=== PATIENT | female | born 1950 ===

== ENCOUNTER 2016-12-08 15:14 | Emergency (ER) | payer OTHER ==
[2016-12-08 15:27] VITALS: O2SAT 100
[2016-12-08] MEDS ORDERED: DiphenhydrAMINE 50 mg/ml Inj IVP STA (16:11)
[2016-12-08] MEDS ORDERED: Sodium Chloride 0.9% 1,000 ML IV ONE (16:39)
[2016-12-08] MEDS ORDERED: DiphenhydrAMINE 50 mg/ml Inj ONE (16:44)
[2016-12-08] MEDS ORDERED: Sodium Chloride 0.9% 1,000 ML ONE (16:44)
[2016-12-08 16:54] LABS: BASO % 0.6 % (0.0-2.0); EOS # 0.1 K/uL (0.0-0.7); EOS % 1.8 % (0.0-4.0); HEMATOCRIT 37.6 % (34.0-47.0); LYMPH # 1.4 K/uL (1.0-4.3); LYMPH % 18.2 % (20.0-40.0); MEAN CELL VOLUME 93.5 fL (81.0-99.0); MEAN CORPUSCULAR HEMOGLOBIN 30.7 pg (27.0-31.0); MEAN CORPUSCULAR HGB CONC 32.9 g/dL (33.0-37.0); MEAN PLATELET VOLUME 9.9 fL (7.2-11.7); MONO # 0.6 K/uL (0.0-0.8); MONO % 7.5 % (0.0-10.0); RED CELL DISTRIBUTION WIDTH 13.9 % (11.5-14.5); WHITE BLOOD COUNT 7.6 K/uL (4.8-10.8)
--- NOTE | 2016-12-08 16:54 | C.PDOC ---
History Of Present Illness 66-year-old female, presents to the emergency department with complaints of generalized weakness, dizziness and numbness in B/L legs over the past few days. Symptoms worsened this morning, resulting in her coming to the ED for evaluation. Patient reports intermittent epigastric abdominal pain, that feels like her gastritis. Denies nausea/vomiting, fevers or chills. Time Seen by Provider: 12/08/16 15:36 Chief Complaint (Nursing): Weakness/Neurological Deficit History Per: Patient, Family History/Exam Limitations: no limitations Onset/Duration Of Symptoms: Days Current Symptoms Are (Timing): Still Present Past Medical History Reviewed: Historical Data, Nursing Documentation, Vital Signs Vital Signs: Last Vital Signs Temp 97.4 F L 12/08/16 18:14 Pulse 64 12/08/16 18:14 Resp 16 12/08/16 18:14 BP 158/89 H 12/08/16 18:14 Pulse Ox 100 12/08/16 18:36 - Medical History PMH: HTN Family History: States: No Known Family Hx - Social History Hx Tobacco Use: No Hx Alcohol Use: No Hx Substance Use: No - Immunization History Hx Tetanus Toxoid Vaccination: No Hx Influenza Vaccination: No Hx Pneumococcal Vaccination: No Review Of Systems Except As Marked, All Systems Reviewed And Found Negative. Constitutional: Positive for: Weakness. Negative for: Fever, Chills Cardiovascular: Negative for: Chest Pain, Palpitations Respiratory: Negative for: Shortness of Breath Gastrointestinal: Positive for: Abdominal Pain (epigastric). Negative for: Nausea, Vomiting Neurological: Positive for: Numbness (legs) Physical Exam - Physical Exam Appears: Non-toxic, No Acute Distress Skin: Warm, Dry, No Rash Head: Atraumatic, Normacephalic Eye(s): bilateral: Normal Inspection, PERRL Nose: Normal Oral Mucosa: Moist Lips: Normal Appearing Neck: Normal ROM Cardiovascular: Rhythm Regular, No Murmur Respiratory: Normal Breath Sounds, No Accessory Muscle Use Gastrointestinal/Abdominal: Soft, No Tenderness, No Guarding, No Rebound Extremity: Normal ROM Neurological/Psych: Oriented x3, Normal Speech ED Course And Treatment - Laboratory Results Result Diagrams: 12/08/16 16:47 12/08/16 16:47 ECG: Interpreted By Me, Viewed By Me ECG Rhythm: Sinus Rhythm ECG Interpretation: No Acute Changes Rate From EC O2 Sat by Pulse Oximetry: 100 (on RA) Medical Decision Making Medical Decision Making: Plan: * CMP * CBC * Benadryl, Pepcid, Reglan, IVF, Toradol * Urinalysis * Reassess and Disposition On re-evaluation, patient is resting comfortably, and is in no acute distress. Patient is awake and alert, answering questions appropriately. Patient was instructed to follow up with physician/clinic in 1-2 days for further evaluation. All questions answered and she is agreeable with plan to discharge for outpatient f/u. Disposition - Disposition Referrals: [facility] at [facility] [Outside] Disposition: HOME/ ROUTINE Disposition Time: 18:22 Additional Instructions: Follow up with the medical doctor within 1-2 days. Return if worsened. 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 - Scribe Statement The provider has reviewed the documentation as recorded by the Scribe (Maru Morataya) All medical record entries made by the Scribe were at my direction and personally dictated by me. I have reviewed the chart and agree that the record accurately reflects my personal performance of the history, physical exam, medical decision making, and the department course for this patient. I have also personally directed, reviewed, and agree with the discharge instructions and disposition.
[2016-12-08 16:57] LABS: CHLORIDE 97 mmol/L (98-107); SODIUM 137 mmol/L (132-148)
[2016-12-08 16:58] LABS: POTASSIUM 3.8 mmol/L (3.6-5.2)
[2016-12-08 17:00] LABS: ALB/GLOB RATIO 1.1 (1.0-2.1); ALKALINE PHOSPHATASE 101 U/L (38-126); ALT/SGPT 30 U/L (9-52); AST/SGOT 25 U/L (14-36); BILIRUBIN,TOTAL 0.8 mg/dL (0.2-1.3); BLOOD UREA NITROGEN 16 mg/dL (7-17); CARBON DIOXIDE 27 mmol/L (22-30); GFR AFRICAN-AMERICAN > 60; GLUCOSE,RANDOM 116 mg/dL (65-105)
[2016-12-08 17:01] LABS: CALCIUM 9.1 mg/dl (8.6-10.4)
[2016-12-08 18:08] LABS: RBC URINE 1 /hpf (0-3); URINE BACTERIA RARE (<OCC); URINE BILIRUBIN NEGATIVE (NEGATIVE); URINE BLOOD NEGATIVE (NEGATIVE); URINE COLOR Yellow (YELLOW); URINE GLUCOSE (UA) NORMAL (Normal); URINE KETONE TRACE mg/dL (NEGATIVE); URINE LEUKOCYTE ESTERASE NEG Leu/uL (Negative); URINE PROTEIN NEGATIVE (NEGATIVE); URINE UROBILINOGEN NORMAL mg/dL (0.2-1.0); WBC URINE 2 /hpf (0-5)
[2016-12-08 18:15] VITALS: BP 158/89; PULSE 64; RESP 16; TEMP 97.4
== END 2016-12-08 18:46 | disposition home or self-care (01) ==
LOC: C.ER 15:14
DX: R42 Dizziness and giddiness (principal); I10 Essential (primary) hypertension
CPT/HCPCS: 80053; 81001; 82948; 85025; 96361; 96374; 96375; 99285; J1200; J1885; J2765; J7040

== ENCOUNTER 2016-12-15 15:42 | Emergency (ER) | payer OTHER ==
[2016-12-15 15:50] VITALS: O2SAT 99
--- NOTE | 2016-12-15 17:01 | RAD ---
PROCEDURE: Left Foot Radiographs. HISTORY: r/o fx COMPARISON: None. FINDINGS: BONES: No fracture. Small plantar calcaneal spur. JOINTS: Normal. SOFT TISSUES: Normal. OTHER FINDINGS: None. IMPRESSION: No acute fracture. Small plantar calcaneal spur noted.
[2016-12-15 17:17] VITALS: BP 155/98; PULSE 60; RESP 20; TEMP 97.6
--- NOTE | 2016-12-15 17:44 | C.PDOC ---
History Of Present Illness Patient is a 66 year old female who presents to the ER with a complaint of left heel/foot pain for 1 month. Patient states she went to the clinic but was not able to be seem. Patient has not taken any medication for the pain; ambulating normally. Denies trauma, weakness, or numbness. Time Seen by Provider: 12/15/16 16:16 Chief Complaint (Nursing): Lower Extremity Problem/Injury History Per: Patient History/Exam Limitations: no limitations Onset/Duration Of Symptoms: Days (1 month) Current Symptoms Are (Timing): Still Present Recent travel outside of the [place]: No Past Medical History Reviewed: Historical Data, Nursing Documentation, Vital Signs Vital Signs: Last Vital Signs Temp 97.6 F 12/15/16 17:16 Pulse 60 12/15/16 17:16 Resp 20 12/15/16 17:16 BP 155/98 H 12/15/16 17:16 Pulse Ox 99 12/15/16 17:50 - Medical History PMH: HTN Surgical History: No Surg Hx Family History: States: Unknown Family Hx - Social History Hx Tobacco Use: No Hx Alcohol Use: No Hx Substance Use: No - Immunization History Hx Tetanus Toxoid Vaccination: No Hx Influenza Vaccination: No Hx Pneumococcal Vaccination: No Review Of Systems Musculoskeletal: Positive for: Foot Pain (Left including heel) Neurological: Negative for: Weakness, Numbness Physical Exam - Physical Exam Appears: Non-toxic, No Acute Distress Skin: Normal Color, Warm, Dry Head: Atraumatic, Normacephalic Oral Mucosa: Moist Extremity: Normal ROM, No Tenderness, No Pedal Edema, No Deformity, No Swelling Pulses: Left Dorsalis Pedis: Normal, Right Dorsalis Pedis: Normal Neurological/Psych: Oriented x3, Normal Speech, Normal Cognition Gait: Steady ED Course And Treatment O2 Sat by Pulse Oximetry: 99 (Room air) Pulse Ox Interpretation: Normal Progress Note: Motrin administered. Disposition - Disposition Referrals: [facility] [Outside] [facility] [Outside] Disposition: HOME/ ROUTINE Disposition Time: 17:00 Condition: GOOD Additional Instructions: Thank you for letting us take care of you today. Your provider was Dr. Carvalho. You were treated for foot pain. The emergency medical care you received today was directed at your acute symptoms. If you were prescribed any medication, please fill it and take as directed. It may take several days for your symptoms to resolve. Return to the Emergency Department if your symptoms worsen, do not improve, or if you have any other problems. Please contact your doctor or call one of the physicians/clinics you have been referred to that are listed on the Patient Visit Information form that is included in your discharge packet. Bring any paperwork you were given at discharge with you along with any medications you are taking to your follow up visit. Our treatment cannot replace ongoing medical care by a primary care provider (PCP) outside of the emergency department. Thank you for allowing the [facility] team to be part of your care today. Follow up with the clinic in 2-3 days for re-evaluation. Prescriptions: Cyclobenzaprine [Cyclobenzaprine HCl] 10 mg PO Q8 PRN #20 tab PRN Reason: Muscle Spasm Ibuprofen [Motrin] 600 mg PO Q6 PRN #20 tab PRN Reason: Pain, Moderate (4-7) Instructions: Foot Sprain (ED) Forms: Gen Discharge Inst Lithuanian Print Language: YI - Clinical Impression Clinical Impression: Foot sprain - Scribe Statement The provider has reviewed the documentation as recorded by the Scribramírez Terrell All medical record entries made by the Hillaryibramírez were at my direction and personally dictated by me. I have reviewed the chart and agree that the record accurately reflects my personal performance of the history, physical exam, medical decision making, and the department course for this patient. I have also personally directed, reviewed, and agree with the discharge instructions and disposition.
== END 2016-12-15 17:16 | disposition home or self-care (01) ==
LOC: C.ER 15:42
DX: S93.602A Unspecified sprain of left foot, initial encounter (principal); X58.XXXA Exposure to other specified factors, initial encounter; I10 Essential (primary) hypertension

== ENCOUNTER 2017-02-01 18:29 | Emergency (ER) | payer OTHER ==
[2017-02-01 18:36] VITALS: O2SAT 99
[2017-02-01] MEDS ORDERED: Sodium Chloride 0.9% 1,000 ML IV ONE (20:02)
[2017-02-01 20:24] LABS: BASO # 0.1 K/uL (0.0-0.2); BASO % 0.6 % (0.0-2.0); EOS % 0.1 % (0.0-4.0); HEMATOCRIT 37.6 % (34.0-47.0); LYMPH # 0.6 K/uL (1.0-4.3); LYMPH % 5.4 % (20.0-40.0); MEAN CORPUSCULAR HEMOGLOBIN 30.7 pg (27.0-31.0); MEAN CORPUSCULAR HGB CONC 33.4 g/dL (33.0-37.0); MEAN PLATELET VOLUME 9.3 fL (7.2-11.7); MONO # 0.7 K/uL (0.0-0.8); MONO % 6.4 % (0.0-10.0); PLATELET COUNT 152 K/uL (130-400); RED CELL DISTRIBUTION WIDTH 13.7 % (11.5-14.5); WHITE BLOOD COUNT 11.1 K/uL (4.8-10.8)
[2017-02-01 20:33] LABS: CHLORIDE 96 mmol/L (98-107); POTASSIUM 3.4 mmol/L (3.6-5.2); SODIUM 132 mmol/L (132-148)
[2017-02-01 20:35] LABS: GFR AFRICAN-AMERICAN > 60
--- NOTE | 2017-02-01 20:35 | C.PDOC ---
History Of Present Illness 66 y/o female c/o typical headache, increasing urinary frequency that began today. Reports usually taking Excedrin and has not taken anything since this morning. Denies photophobia, blurred vision, neck pain, neck stiffness, fever, chills, URI symptoms, back pain, or any other complaints. Time Seen by Provider: 02/01/17 19:49 Chief Complaint (Nursing): Headache History Per: Patient History/Exam Limitations: no limitations Onset/Duration Of Symptoms: Hrs Current Symptoms Are (Timing): Still Present Severity: Mild Associated Symptoms: denies: Photophobia, Blurred Vision, Extremity Weakness Recent travel outside of the [place]: No Additional History Per: Patient Past Medical History Reviewed: Historical Data, Nursing Documentation, Vital Signs Vital Signs: Last Vital Signs Temp 102.3 F H 02/01/17 18:33 Pulse 108 H 02/01/17 18:33 Resp 20 02/01/17 18:33 BP 157/98 H 02/01/17 18:33 Pulse Ox 99 02/01/17 20:40 - Medical History PMH: HTN Family History: States: Unknown Family Hx - Social History Hx Tobacco Use: No Hx Alcohol Use: No Hx Substance Use: No - Immunization History Hx Tetanus Toxoid Vaccination: No Hx Influenza Vaccination: No Hx Pneumococcal Vaccination: No Review Of Systems Except As Marked, All Systems Reviewed And Found Negative. Constitutional: Negative for: Fever, Chills Eyes: Negative for: Vision Change, Other (Photophobia) ENT: Negative for: Nose Discharge, Throat Pain Respiratory: Negative for: Cough Genitourinary: Positive for: Frequency, Other (Foul smelling urine) Musculoskeletal: Negative for: Neck Pain, Back Pain Neurological: Positive for: Headache Physical Exam - Physical Exam Appears: Non-toxic, No Acute Distress Skin: Warm, Dry Head: Atraumatic, Normacephalic Eye(s): bilateral: Normal Inspection, Other (No photophobia, No nuchal rigidity) Oral Mucosa: Moist Neck: Supple Cardiovascular: Rhythm Regular Respiratory: Normal Breath Sounds, No Rales, No Rhonchi, No Wheezing Gastrointestinal/Abdominal: Soft, No Tenderness Back: No CVA Tenderness Neurological/Psych: Oriented x3, Normal Speech, Normal Cognition ED Course And Treatment - Laboratory Results Result Diagrams: 02/01/17 20:19 08/17/17 20:19 Lab Interpretation: Abnormal (+ mild leukocytosis, UA neg.) ECG: Interpreted By Me ECG Rhythm: Sinus Rhythm ECG Interpretation: Normal Rate From EC O2 Sat by Pulse Oximetry: 99 (RA) Pulse Ox Interpretation: Normal - Radiology CXR: Interpreted by Me CXR Interpretation: Yes: No Acute Disease Medical Decision Making Medical Decision Making: Impression: 66 y/o female c/o typical headache, increasing urinary frequency, and foul smelling urine that began today. Plans: * EKG * Blood work up * CXR * Motrin * Zofran * Protonix * IV fluids * Ultram * UA * typical headache- similar to all previous- is related to b/l trapezius tenderness without nuchal rigidity. though pt with fever, no nuchal rigidity, and no photophobia and LOW susp of meningitis. LP deferred by pt with informed consent but to return to ED if worstening fevers /PATEL's Disposition Doctor Will See Patient In The: Office Counseled Patient/Family Regarding: Studies Performed, Diagnosis - Disposition Disposition: HOME/ ROUTINE Disposition Time: 22:29 Condition: GOOD Forms: [facility] (Ukrainian) - Clinical Impression Clinical Impression: Headache, Fever - Scribe Statement The provider has reviewed the documentation as recorded by the Scribe Marcella hernandez All medical record entries made by the Scribe were at my direction and personally dictated by me. I have reviewed the chart and agree that the record accurately reflects my personal performance of the history, physical exam, medical decision making, and the department course for this patient. I have also personally directed, reviewed, and agree with the discharge instructions and disposition.
[2017-02-01 20:36] LABS: ALB/GLOB RATIO 1.1 (1.0-2.1); ALKALINE PHOSPHATASE 107 U/L (38-126); ALT/SGPT 31 U/L (9-52); AST/SGOT 28 U/L (14-36); BILIRUBIN,TOTAL 0.9 mg/dL (0.2-1.3); BLOOD UREA NITROGEN 9 mg/dL (7-17); CARBON DIOXIDE 24 mmol/L (22-30); GLUCOSE,RANDOM 109 mg/dL (65-105); TOTAL PROTEIN 7.6 g/dL (6.3-8.3)
[2017-02-01 20:37] LABS: CALCIUM 9.2 mg/dl (8.6-10.4)
[2017-02-01 20:43] LABS: RBC URINE 3 /hpf (0-3); URINE BACTERIA RARE (<OCC); URINE BILIRUBIN NEGATIVE (NEGATIVE); URINE BLOOD NEGATIVE (NEGATIVE); URINE COLOR Yellow (YELLOW); URINE GLUCOSE (UA) NORMAL (Normal); URINE KETONE 1+ mg/dL (NEGATIVE); URINE LEUKOCYTE ESTERASE NEG Leu/uL (Negative); URINE PROTEIN 1+ mg/dL (NEGATIVE); URINE UROBILINOGEN NORMAL mg/dL (0.2-1.0); WBC URINE 1 /hpf (0-5)
[2017-02-01] MEDS ORDERED: Sodium Chloride 0.9% 1,000 ML ONE (20:44)
[2017-02-01 20:59] LABS: NEUTROPHIL 80 % (50-75); TOTAL CELLS COUNTED 100
[2017-02-01 22:52] VITALS: BP 125/70; PULSE 80; RESP 14; TEMP 99.9
--- NOTE | 2017-02-02 08:09 | RAD ---
PROCEDURE: CHEST RADIOGRAPH, 1 VIEW HISTORY: SOB COMPARISON: None available. FINDINGS: LUNGS: There is mild pulmonary venous congestion. No focal consolidation. PLEURA: No pneumothorax or pleural fluid seen. CARDIOVASCULAR: Normal. OSSEOUS STRUCTURES: No significant abnormalities. VISUALIZED UPPER ABDOMEN: Normal. OTHER FINDINGS: None. IMPRESSION: No active pulmonary disease.
--- NOTE | 2017-02-04 17:43 | CARD ---
APPROVED REPORT EKG Measurement Heart [id number] <Conclusion> Normal sinus rhythm prolonged QTc interval, otherwise Normal ECG
== END 2017-02-01 22:53 | disposition home or self-care (01) ==
LOC: C.ER 18:29
DX: R50.9 Fever, unspecified (principal); R51 Headache
CPT/HCPCS: 71010; 80053; 81001; 83880; 84484; 85025; 87040; 87149; 87205; 93005; 96374; 96375; 99284; C9113; J2405; J7040